=== PATIENT | male | born 1980 | race Caucasian/White ===

== ENCOUNTER 2017-06-15 21:50 | Emergency (ER) | payer MEDICAID, OTHER ==
[~2017-06-15] VITALS: Ht 180.3 cm; Wt 86.0 kg
[~2017-06-15 21:50] MED LIST: CLOT30CR24 TOP; FLUC150T17 PO
[2017-06-15 22:15] VITALS: Ht 180.3 cm; Wt 86.0 kg
[2017-06-16] MEDS ORDERED: TOBRAMYCIN 0.3% 5 ML OPH RIGHT EYE ONE (00:30)
[2017-06-16] MEDS ORDERED: FLUORESCEIN STRIP RIGHT EYE ONE (00:30)
[2017-06-16] MEDS ORDERED: TETRACAINE 0.5% 4 ML OPH RIGHT EYE ONE (00:30)
[2017-06-16] MEDS ORDERED: OPHTHALMIC IRRIG SOLUTION 120 ML RIGHT EYE ONE (01:30)
--- NOTE | 2017-06-16 01:45 | ERD ---
ER Documentation Chief Complaint Date/Time DATE: 06/16/17 TIME: 01:25 Chief Complaint RIGHT EYE INJURY- HIT WITH PLASTIC (NO REDNESS/BLEEDING NOTED) HPI This 36-year-old male patient presents to emergency department for evaluation after right eye injury. Patient reports that he was sawing plastic tight without protective eyewear and felt something go into his right eye. Patient reports that the foreign body sensation has subsided but his eye is red, irritated and painful. Patient denies any blurred vision or discharge from his eyes. Denies any change in vision or pain with blinking. 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 Patient denies headache, or any other injury ROS All systems reviewed and are negative except as per history of present illness. Medications Home Meds Active Scripts Clotrimazole* (Clotrimazole* AF) 1% - 30 Gm Cream.gm., 1 APPLIC TOP BID for 7 Days, TUB Prov:JOSE MARIA ROBB NP 02/03/16 Fluconazole* (Diflucan*) 150 Mg Tablet, 150 MG PO ONCE, #1 TAB Prov:JOSE MARIA ROBB NP 02/03/16 Allergies Allergies: Coded Allergies: No Known Allergy (Unverified , 02/03/16) PMhx/Soc Medical and Surgical Hx: pt denies Medical Hx, pt denies Surgical Hx History of Surgery: No Anesthesia Reaction: No Hx Neurological Disorder: No Hx Respiratory Disorders: No Hx Cardiac Disorders: No Hx Psychiatric Problems: No Hx Miscellaneous Medical Probl: No Hx Alcohol Use: Yes (OOC) Hx Substance Use: No Hx Tobacco Use: No Smoking Status: Never smoker Physical Exam Vitals Vital Signs Date Time Temp Pulse Resp B/P Pulse Ox O2 Delivery O2 Flow Rate FiO2 06/15/17 22:15 96.8 68 20 137/84 99 Vitals stable, triage notes are Physical Exam Const: Well-appearing, well-hydrated, well-nourished, no acute distress Head: Atraumatic Eye Exam: Visual Acuity: Visual Weeks: Intact in all four quadrants bilaterally Lac ducts/glands: No swelling Lids w/ evertion: Normal, no foreign body Conj/[place]: Clear, negative Fluorescein exam: No corneal epithelial defect, no abrasion, no ulcer, or dendritic lesions, no foreign body or ring rust ENT: Normal External Ears, Nose and Mouth. Neck: Full range of motion..~ No meningismus. Resp: Respirations even and unlabored, no respiratory distress Cardio: Abd: Skin: Back: Ext: Neur: Awake and alert Psych: Normal Mood and Affect Results 24 hrs Current Medications Medications (Trade) Dose Ordered Sig/Coral Route PRN Reason Start Time Stop Time Status Last Admin Dose Admin Tetracaine HCl (Tetracaine 0.5% Steri-Unit Emilee) 1 drop ONCE ONCE RIGHT EYE 06/16/17 00:30 06/16/17 00:31 DC 06/16/17 01:12 Fluorescein Sodium (Szhlz-W-Fdhgm) 1 strip ONCE ONCE RIGHT EYE 06/16/17 00:30 06/16/17 00:31 DC 06/16/17 01:12 Tobramycin Sulfate (Tobrex 0.3% Oph Drop) 2 drop ONCE ONCE RIGHT EYE 06/16/17 00:30 06/16/17 00:31 DC 06/16/17 01:12 Procedures/MDM This pleasant 36-year-old male presents to emergency department with significant other for evaluation of foreign body in right eye. Patient's vision at baseline, patient has no vision in left eye from childbirth. Patient reports no visual change, foreign body sensation that he felt earlier has subsided. Denies photophobia diplopia or decreased vision. No concern for ketatitis, periorbital infection orbital cellulitis glaucoma or optic nerve neuritis., exam negative for foreign body patient will receive eyewash prior to discharge, and started on tobramycin drops 1 drop right eye 4 times daily 7 days, medication started in emergency department patient sent home with open bottle.. Follow-up with ophthalmology this week for treatment reevaluation. Return to emergency department for worsening of symptoms, increased redness, pain, discharge. I feel the patient is stable for discharge at this time. I have discussed results, examination findings, the treatment plan with the patient and family present prior to discharge. Indications for emergent reevaluation, side effects of medication were also discussed. All questions were answered. Patient verbalizes understanding and agrees with plan of care. Departure Diagnosis: Primary Impression: Conjunctivitis Conjunctivitis type: unspecified Laterality: right Qualified Code: H10.9 - Conjunctivitis of right eye, unspecified conjunctivitis type Condition: Good Patient Instructions: Conjunctivitis Caused by Irritation Additional Instructions: Thank you for for coming to [facility] for your care today. Please ask your nurse or provider if you have questions about your care today and do not leave until all your questions have been answered. Please use any medications given as directed and follow-up with your doctor (or the doctor you were referred to) in the next 2-3 days. If you do not have a primary care doctor you may follow up at the [facility] (listed below). You may also use motrin and tylenol as needed for fever and/or pain unless instructed otherwise by your provider or nurse. Indications for more urgent follow-up have been discussed, but you may return to the Emergency Department at ANY time for any worrisome or worsening symptoms. If you have abdominal pain, please know that no test or exam you received is perfect and you should follow up within 8 hours for continued pain. If you had any imaging studies today, such as an X-Ray or CT Scan, these studies will be reviewed later by a radiologist. You will be called if there are important findings that were not identified today, so make sure the contact information you provided at registration is correct. If you received any narcotic pain control medicine today, such as Vicodin, Morphine or Dilaudid, your coordination and judgment may be affected for a number of hours. Please do not drive or operate heavy machinery, and you may want someone to assist you at home. If you were given a prescription for narcotic medication, be aware that it is very addictive- use sparingly and only if necessary. ISIDORO MILLER Jun 16, 2017 01:35
[2017-06-16 02:13] VITALS: BP 132/87; PULSE 54; RESP 18; TEMP 97.5
== END 2017-06-16 02:16 | disposition home or self-care (01) ==
LOC: FTE 21:50
DX: H10.9 Unspecified conjunctivitis (principal)
CPT/HCPCS: Z7610 ×3; 99283